=== PATIENT | female | born 1985 | race Caucasian/White ===

== ENCOUNTER 2017-01-02 15:30 | Emergency (ER) | payer BC ==
[~2017-01-02] VITALS: Ht 165.1 cm; Wt 83.5 kg
[2017-01-02 15:33] VITALS: Ht 165.1 cm; Wt 83.5 kg
[2017-01-02] MEDS ORDERED: METH-70 PO (16:29)
[2017-01-02] MEDS ORDERED: HYDR-906 PO (16:29)
--- NOTE | 2017-01-02 16:31 | ERD ---
ER Documentation Chief Complaint Date/Time DATE: 01/02/17 TIME: 16:30 Chief Complaint LOWER BACK PAIN X5 DAYS, DENIES INJURY OR PAINFUL URINATION HPI This is a 31-year-old female who is here for 5 days of lower lumbar back pain bilaterally located at the L5-S1 junction on both sides of the paraspinal region described as sharp worse with movement better with rest. No radiculopathy no dysuria no hematuria no abdominal pain no loss of bowel or bladder or saddle anesthesia ROS All systems reviewed and are negative except as per history of present illness. Medications Home Meds Active Scripts Hydrocodone/Acetaminophen ([place] 5-325 Tablet) 1 Each Tablet, 1 TAB PO Q6H Y for PAIN, #20 TAB Prov:LEKKOSVLADIMIRSTOLOS A. DO 01/02/17 Methocarbamol* (Robaxin*) 750 Mg Tablet, 750 MG PO TID, #20 TAB Prov:LEKKOSAPOSTOLOS A. DO 01/02/17 Allergies Allergies: Coded Allergies: No Known Allergy (Unverified , 01/02/17) PMhx/Soc Medical and Surgical Hx: pt denies Medical Hx, pt denies Surgical Hx Hx Alcohol Use: No Hx Substance Use: No Hx Tobacco Use: No Smoking Status: Never smoker FmHx Family History: No coronary disease Physical Exam Vitals Vital Signs Date Time Temp Pulse Resp B/P Pulse Ox O2 Delivery O2 Flow Rate FiO2 01/02/17 15:33 98.4 108 18 146/94 99 Physical Exam Const: Well-developed, well-nourished Head: Atraumatic, normocephalic Eyes: Normal Conjunctiva, PERRLA, EOMI, normal sclera, no nystagmus ENT: Normal External Ears, Nose and Mouth, moist mucus membranes. Neck: Full range of motion. No meningismus, no lymphadenopathy. Resp: Clear to auscultation bilaterally, no wheezing, rhonchi, rales Cardio: Regular rate and rhythm, no murmurs, S1 S2 present Abd: Soft, non tender x 4, non distended. Normal bowel sounds, no guarding or rebound, no pulsitile abdominal masses or bruits Skin: No petechiae or rashes, no ecchymosis , no maculopapular rash Back: Bilateral lower lumbar muscles tenderness, negative straight leg test] Ext: No cyanosis, or edema, FROM x 4, normal inspection, neurovascularly intact x 4 Neur: Awake and alert, STR 5/5 x 4, sensation intact x 4, no focal findings, cerebellum intact Psych: Normal Mood and Affect Departure Diagnosis: Primary Impression: Back pain Back pain location: low back pain Chronicity: acute Back pain laterality: bilateral Sciatica presence: without sciatica Qualified Code: M54.5 - Acute bilateral low back pain without sciatica Condition: Stable Patient Instructions: Back Pain (Acute Or Chronic) GALILEO LAN DO Jan 02, 2017 16:31
== END 2017-01-02 17:34 | disposition home or self-care (01) ==
LOC: FTE 15:30
DX: M54.5 Low back pain (principal)
CPT/HCPCS: 99284